=== PATIENT | male | born 1975 | race Two or more races ===

== ENCOUNTER 2020-02-28 08:54 | Inpatient (IN) | payer OTHER, SELFPAY ==
[2020-02-28] VITALS (7 sets, daily range): BP systolic 109–134; BP diastolic 57–89
[~2020-02-28] VITALS: Ht 182.9 cm; Wt 110.4 kg
[2020-02-28] MEDS ORDERED: SODIUM CHLORIDE 0.9% 1,000 ML IV ONE ×2 (09:28)
[2020-02-28] MEDS ORDERED: cefTRIAXone 1GM/50ML D5W 50 ML IV ONE (09:30)
[2020-02-28 09:37] LABS: Basophils # (auto) 0 10 ^3/uL (0-0.2); Basophils % (auto) 0.1 % (0.0-2.0); Eosinophils # (auto) 0 10 ^3/uL (0-0.8); Hematocrit 43.9 % (41.0-53.0); Lymphocytes # (auto) 0.7 10 ^3/uL (0.4-5.4); Lymphocytes % (auto) 16.3 % (10.0-50.0); Mean Corpuscular Hemoglobin 30.1 pg (28.0-32.0); Mean Corpuscular Hgb Conc. 34.1 g/dL (32.0-36.0); Mean Corpuscular Volume 88.2 fL (80.0-100.0); Monocytes # (auto) 0.2 10 ^3/uL (0-1.3); Neutrophils # (auto) 3.3 10 ^3/uL (1.6-8.6); Neutrophils % (auto) 78.6 % (37.0-80.0); Nucleated Red Blood Cells % 0.1 %; Platelet Count (auto) 171 10^3/uL (140-450); Red Blood Cells 4.97 10^6/uL (4.5-5.90); Red Cell Distribution Width 13.6 % (11.8-14.3); White Blood Cell 4.2 10^3/uL (4.4-10.8)
[2020-02-28 09:49] LABS: Albumin 3.6 g/dL (3.4-5.0); BUN/Creatinine Ratio 7.2; Calcium 8.8 mg/dL (8.5-10.1); Potassium 3.2 mmol/L (3.5-5.1)
[2020-02-28 09:57] LABS: Bilirubin, Total 0.3 mg/dL (0.2-1.0); Total Protein 8.4 g/dL (6.4-8.2)
[2020-02-28] MEDS ORDERED: ZINC SULFATE 220mg CAP or TAB PO ONE (10:15)
[2020-02-28] MEDS ORDERED: AZITHROMYCIN 500MG/ 250ML 250 ML IV ONE (10:15)
[2020-02-28] MEDS ORDERED: ASCORBIC ACID 500 MG TAB PO ONE (10:15)
[2020-02-28] MEDS ORDERED: ONDANSETRON HCL 4 MG/2 ML VIAL IV ONE (11:00)
[2020-02-28] MEDS ORDERED: MORPHINE SULF INJ 2 MG/ML SYRINGE 1ML IV PRN (11:00)
[2020-02-28] MEDS ORDERED: NITROGLYCERIN 0.4 MG SL TAB SL PRN (11:00)
[2020-02-28] MEDS ORDERED: POTASSIUM CHL 20 Meq TABLET PO ONE (11:00)
[2020-02-28 11:35] LABS: CRP High Sensitivity 7.26 mg/dL (< 0.3)
--- NOTE | 2020-02-28 11:50 | NUR ---
Telemetry admit from ER JUAN ANTONIO ALBARRAN admitted to Telemetry unit after SBAR received. Patient oriented to RAY RAMON RN primary RN, unit, room, bed, and unit policies regarding patient care and visiting hours. Patient now on continuous telemetry monitoring, tele box # 1 and telemetry reading on arrival to unit is ST. Patient placed on bedside oxygen 1L VIA N/C, NO S/S OF distress or SOB at this time. Bed in lowest and locked position with side rails x2 and call light within reach. Encouraged Pt to call if they need something. All questions and concerns addressed, patient verbalized understanding.
--- NOTE | 2020-02-28 12:30 | NUR ---
PATIENT OWN MEDICATION PLACED IN OWN MEDICATION BAG AND PLACED IN MEDICATION ROOM, PER PROTOCOL.
[2020-02-28] MEDS: ALBUTEROL SULF HFA 90MCG INH 200DOSE IN SCH ×2 (14:14→21:46)
--- NOTE | 2020-02-28 14:15 | NUR ---
Respiratory note: BREATHING TX ADMINISTERED VIA MDI WITH SPACER, PT TOLERATED WELL, NO ADVERSE REACTIONS NOTED. EDUCATED PT ON INHALER ADMINISTRATION WITH SPACER, PT VERBALIZED AND DEMONSTRATED UNDERSTANDING. HR 126, RR 18, SPO2 94% ON 1LPM NASAL CANNULA. NO S/S OF RESPIRATORY DISTRESS NOTED.
[2020-02-28] MEDS ORDERED: ACE3T PO (14:26)
[2020-02-28] MEDS ORDERED: LEVO500T21 PO (14:26)
--- NOTE | 2020-02-28 15:45 | NUR ---
PAGED DONALD ARELLANO. AWAITING CALL BACK.
--- NOTE | 2020-02-28 15:50 | NUR ---
RECEIVED CALL BACK FROM DONALD ARELLANO. SPOKE TO DONALD ARELLANO. NEW ORDERS RECEIVED READ BACK AND VERIFIED. SEE EMR FOR ORDERS.
[2020-02-28] MEDS ORDERED: ZOLPIDEM TARTRATE 5 MG TAB PO PRN (16:00)
[2020-02-28] MEDS: ACETAMINOPHEN 500 MG TAB PO PRN (18:16)
--- NOTE | 2020-02-28 19:50 | NUR ---
Opening Shift Note Assumed care of patient, awake and alert x4. Patient denies pain at this time. Patient is on 1L NC, with oxygen saturation at 94%. No signs/symptoms of distress noted or verbalized at this time. Incentive spirometer noted at bedside. Instructed and educated patient on how and how often to use the incentive spirometer, patient verbalized understanding and returned demonstration. Patient was able to raise the marker to 2500ml. Instructed on plan of care and to call for assistance as needed, patient verbalized understanding. Bed is locked in lowest position, side rails x 2 are up, and call light is within reach.
--- NOTE | 2020-02-28 20:18 | NUR ---
Hospitalist Paged RE: Nausea and Sleeping Meds Patient is complaining of nausea and is requesting nausea medication. Patient also states ambien is too strong and is requesting something different to help him sleep. Awaiting call back.
--- NOTE | 2020-02-28 20:28 | NUR ---
Hospitalist Returned Call Re: Nausea and Sleeping Meds Notified Dr. Myers that patient is complaining of nausea and is requesting a different sleeping medication. Orders for Zofran 4mg IV Q6HR PRN for nausea and Temazepam 15mg PO PRN for insomnia received. Orders read back and verified. Will carry out orders as received.
[2020-02-28] MEDS ORDERED: TEMAZEPAM 15 MG CAP PO PRN (20:30)
[2020-02-28] MEDS ORDERED: ONDANSETRON HCL 4 MG/2 ML VIAL IV PRN (20:30)
--- NOTE | 2020-02-28 21:44 | NUR ---
Temperature Temperature trended up from 99.2 to 99.4. Cooling measures initiated and in place.
[2020-02-29] VITALS (8 sets, daily range): BP systolic 97–134; BP diastolic 43–92
--- NOTE | 2020-02-29 02:20 | NUR ---
TEMP Patient called requesting to have his temperature checked due to feeling hot. Upon checking temperature it was found to be 100.0. Cooling measures initiated and in place.
[2020-02-29] MEDS: ACETAMINOPHEN 500 MG TAB PO PRN (03:18)
--- NOTE | 2020-02-29 03:20 | NUR ---
TEMP REASSESSMENT Temperature reassessment: 100.4. Cooling measures continue to be in place. Patient medicated for temperature as ordered by MD (see eMAR).
--- NOTE | 2020-02-29 04:20 | NUR ---
Temperature Reassessment Temperature reassessment: 99.3. Cooling measures continue to be in place.
[2020-02-29] MEDS: ALBUTEROL SULF HFA 90MCG INH 200DOSE IN SCH (06:20)
[2020-02-29 08:51] LABS: Basophils # (auto) 0 10 ^3/uL (0-0.2); Basophils % (auto) 0.2 % (0.0-2.0); Eosinophils # (auto) 0 10 ^3/uL (0-0.8); Hematocrit 42.4 % (41.0-53.0); Hemoglobin 14.6 g/dL (13.5-17.5); Lymphocytes # (auto) 0.9 10 ^3/uL (0.4-5.4); Lymphocytes % (auto) 18.6 % (10.0-50.0); Mean Corpuscular Hemoglobin 30.4 pg (28.0-32.0); Mean Corpuscular Hgb Conc. 34.4 g/dL (32.0-36.0); Mean Corpuscular Volume 88.3 fL (80.0-100.0); Monocytes # (auto) 0.2 10 ^3/uL (0-1.3); Monocytes % (auto) 4.3 % (0.0-12.0); Neutrophils # (auto) 3.7 10 ^3/uL (1.6-8.6); Neutrophils % (auto) 76.9 % (37.0-80.0); Platelet Count (auto) 182 10^3/uL (140-450); Red Blood Cells 4.81 10^6/uL (4.5-5.90); Red Cell Distribution Width 13.7 % (11.8-14.3); White Blood Cell 4.9 10^3/uL (4.4-10.8)
[2020-02-29 09:05] LABS: Potassium 3.5 mmol/L (3.5-5.1)
[2020-02-29 09:12] LABS: Albumin 3.2 g/dL (3.4-5.0); BUN/Creatinine Ratio 6.7; Bilirubin, Total 0.3 mg/dL (0.2-1.0); Calcium 8.4 mg/dL (8.5-10.1)
[2020-02-29] MEDS ORDERED: AZITHROMYCIN 500MG/D5WorNS 250ml IV SCH (10:00)
[2020-02-29] MEDS: ASCORBIC ACID 1,000 MG TAB PO SCH (10:26)
[2020-02-29] MEDS: ZINC SULFATE 220mg CAP or TAB PO SCH (10:26)
[2020-02-29] MEDS: CHOLECALCIFEROL (VITD3) 1,000IU=25mCg TAB PO SCH (10:27)
[2020-02-29] MEDS: ENOXAPARIN SOD 40 MG/0.4 ML SYRINGE SC SCH (10:40)
[2020-02-29] MEDS ORDERED: POTASSIUM CHL 20 Meq TABLET PO ONE (10:45)
[2020-02-29 16:42] LABS: Alcohol, Urine < 3.0 mg/dL (0-5); Amphetamine Screen, Urine NEGATIVE (NEGATIVE); Barbiturate Scree,Urine NEGATIVE (NEGATIVE); Benzodiazephine Screen, Urine NEGATIVE (NEGATIVE); Cannabinoid Screen, Urine POSITIVE (NEGATIVE); Cocaine Screen, Urine NEGATIVE (NEGATIVE); Opiate Scree,Urine NEGATIVE (NEGATIVE); Phencyclidine Screen, Urine NEGATIVE (NEGATIVE)
[2020-02-29 16:49] LABS: Urine Bacteria FEW /hpf (None Seen); Urine Blood TRACE /uL (Negative); Urine Specific Gravity 1.018 (1.001-1.035); Urine WBC 2 /hpf (0 - 3)
[2020-02-29] MEDS ORDERED: IPRATROPIUM-ALBUTEROL 20mCg/100mCg INHALER IN SCH ×2 (18:00)
--- NOTE | 2020-02-29 19:20 | NUR ---
Opening Shift Note Assumed care of patient, awake and alert x4. Patient is complaining of a throbbing headache (pain scale 8/10), informed patient that he has no ordered PRN pain medications and that this RN was going to page hospitalist and make him aware, patient verbalized understanding. Patient is on 1L NC, with oxygen saturation at 94%. No signs/symptoms of distress noted or verbalized at this time. Incentive spirometer noted at bedside. Instructed and educated patient on how and how often to use the incentive spirometer, patient verbalized understanding and returned demonstration. Patient was able to raise the marker to 2500ml. Instructed on plan of care and to call for assistance as needed, patient verbalized understanding. Bed is locked in lowest position, side rails x 2 are up, and call light is within reach.
--- NOTE | 2020-02-29 19:29 | NUR ---
Hospitalist Paged Re: Headache Hospitalist paged regarding patient c/o headache and no PRN pain medications are ordered. Awaiting call back.
--- NOTE | 2020-02-29 19:32 | NUR ---
Hospitalist Returned Call RE: Headache Notified DONALD Batista that patient is complaining of a throbbing headache(06/25) and has no PRN pain medications ordered. Orders received for Tylenol 650mg PO x1 now and Ultram 50mg PO Q6HR PRN for pain received. Orders read back and verified. Will carry out orders as received.
[2020-02-29] MEDS ORDERED: ACETAMINOPHEN 325 MG TAB PO ONE (19:45)
--- NOTE | 2020-02-29 19:49 | NUR ---
Headache Patient is c/o a throbbing headache (pain scale 8/10). Patient states his headache started after waking up from his nap. Patient also reports he gets occasional headaches and migraines at home. Patient has been medicated for headache as ordered by MD (see eMAR).
--- NOTE | 2020-02-29 20:49 | NUR ---
Reassessment: Headache Patient reports his headache is subsiding. Patient rates his headache as a 3/10.
--- NOTE | 2020-02-29 21:30 | NUR ---
Temperature Patient's temperature is 99.6. Patient reports feeling hot. Cooling measures initiated and in place.
[2020-02-29] MEDS: IPRATROPIUM-ALBUTEROL 20mCg/100mCg INHALER IN SCH (22:30)
--- NOTE | 2020-02-29 22:30 | NUR ---
Respiratory note: COMBIVENT GIVEN VIA MDI
--- NOTE | 2020-02-29 22:50 | NUR ---
Reassessment: Temperature Patient's temperature at this time is 98.2.
--- NOTE | 2020-02-29 23:39 | NUR ---
Oxygen Titrated Up Patient's oxygen saturation on cardiac tech was sustaining between 88-90%. Upon entering room, patient's oxygen saturation was 89% on 1L NC. Patient was noted sleeping in bed with even and unlabored respirations. No signs/symptoms of distress was noted. This RN titrated oxygen up to 2L via NC. Patient's oxygen saturation came up to 92%. Patient is currently laying in bed with even and unlabored respirations. No signs/symptoms of distress noted at this time. Current oxygen saturation is 94% via 2L NC.
[2020-03-01] VITALS (7 sets, daily range): BP systolic 110–129; BP diastolic 69–88
[2020-03-01] MEDS: IPRATROPIUM-ALBUTEROL 20mCg/100mCg INHALER IN SCH ×3 (05:46→22:16)
--- NOTE | 2020-03-01 05:46 | NUR ---
Respiratory note: COMBIVENT GIVEN VIA MDI BY MILAGROS Escalante
--- NOTE | 2020-03-01 06:52 | NUR ---
Respiratory note: ASSESSED PT IN PROPER PPE, PT SHOWED NO S/S OF RESPIRATORY DISTRESS. PT VITALS ARE SPO2 94% ON 1 L NASAL CANNULA, RR 18, HR 107. WILL CONTINUE TO MONITOR PT.
--- NOTE | 2020-03-01 06:57 | NUR ---
Closing Shift Note Endorsed patient care to Yunior LINARES.
[2020-03-01] MEDS: ASCORBIC ACID 1,000 MG TAB PO SCH (09:20)
[2020-03-01] MEDS: ZINC SULFATE 220mg CAP or TAB PO SCH (09:20)
[2020-03-01] MEDS: CHOLECALCIFEROL (VITD3) 1,000IU=25mCg TAB PO SCH (09:21)
[2020-03-01] MEDS: AZITHROMYCIN 250 MG TAB PO SCH (09:21)
[2020-03-01] MEDS: ENOXAPARIN SOD 40 MG/0.4 ML SYRINGE SC SCH (09:22)
[2020-03-01] MEDS: traMADol HCL 50 MG TAB PO PRN ×2 (11:56→20:04)
--- NOTE | 2020-03-01 12:54 | NUR ---
Nutrition Assessment Notes Please refer to link for full assessment notes. Est energy needs: 4948-4770 kcals (17-20 kcal/kgBW) Est protein needs: 69-86 gms/day (0.8-1.0 gm/kgAdjBW) Will continue to monitor and reassess prn. Addendum: 03/01/20 at [address] Amended: Links added.
--- NOTE | 2020-03-01 19:30 | NUR ---
Hospitalist paged: Patient requesting Tylenol for pain. No Tylenol for pain order. Paged hospitalist regarding patients headache pain. Waiting for call back.
--- NOTE | 2020-03-01 20:00 | NUR ---
Opening Shift Note Assumed care of patient with provided PPE, awake and alert oriented x4. No S/S of distress/SOB noted. Patient reports pain and is requesting Tylenol. Will notify Hospitalist. Instructed on POC and to call for assist PRN, bed is in lowest locked position with bed rails up x2 and call light is within reach of the patient.
--- NOTE | 2020-03-01 20:50 | NUR ---
Hospitalist called back: Notified hospitalist Jeremy of patients headache and requesting Tylenol. New orders received. To place orders.
[2020-03-01] MEDS: ACETAMINOPHEN 325 MG TAB PO PRN (21:29)
--- NOTE | 2020-03-01 21:56 | NUR ---
MDI ADMINISTERED ORDERED VIA SPACER. SPO2 96% ON 2L NC, HR 100. NO RESPIRATORY DISTRESS NOTED. WILL CONTINUE WITH NEXT SCHEDULED TX.
[2020-03-02] VITALS: BP 101/74
[2020-03-02 05:00] VITALS: BP 114/75
[2020-03-02] MEDS: ACETAMINOPHEN 500 MG TAB PO PRN ×2 (05:50→15:08)
--- NOTE | 2020-03-02 05:50 | NUR ---
Elevated temp, mild pain: Patient had a temperature of 100.6 and a mild headache. PRN Tylenol given to help bring down temperature and cooling measures implemented. Cooled room down and applied ice packs to bilateral arm pits. Patient tolerated well. To recheck temperature.
[2020-03-02] MEDS: IPRATROPIUM-ALBUTEROL 20mCg/100mCg INHALER IN SCH ×3 (06:45→21:38)
--- NOTE | 2020-03-02 06:45 | NUR ---
BREATHING TX ADMINISTERED VIA MDI WITH SPACER, PT TOLERATED WELL, NO ADVERSE REACTIONS NOTED. EDUCATED PT ON INHALER ADMINISTRATION WITH SPACER, PT VERBALIZED AND DEMONSTRATED UNDERSTANDING. HR 82, RR 18, SPO2 93% ON 2LPM NASAL CANNULA. NO S/S OF RESPIRATORY DISTRESS NOTED. WILL CONTINUE TO MONITOR PT.
--- NOTE | 2020-03-02 06:50 | NUR ---
Temperature reassessed: Temperature reassessed as 99.5 after cooling measures implemented and Tylenol was given. Patient resting in bed with breaths even and unlabored. No s/s of distress SOB noted at this time.
--- NOTE | 2020-03-02 07:30 | NUR ---
Opening Shift Note Assumed care of patient, awake and alert. No S/S of distress/SOB or pain. Bed in lowest and locked position with side rails up x2 and call light in reach. Instructed on POC and to call for assist PRN, will continue to monitor for changes Q1hr and PRN.
[2020-03-02 08:00] VITALS: BP 112/81
[2020-03-02] MEDS: ZINC SULFATE 220mg CAP or TAB PO SCH (10:36)
[2020-03-02] MEDS: ENOXAPARIN SOD 40 MG/0.4 ML SYRINGE SC SCH (10:37)
[2020-03-02] MEDS: ASCORBIC ACID 1,000 MG TAB PO SCH (10:37)
[2020-03-02] MEDS: CHOLECALCIFEROL (VITD3) 1,000IU=25mCg TAB PO SCH (10:37)
[2020-03-02] MEDS: AZITHROMYCIN 250 MG TAB PO SCH (10:37)
[2020-03-02 12:00] VITALS: BP 126/84
--- NOTE | 2020-03-02 13:37 | NUR ---
assessment Patient is a 44 year old male who is alert and oriented. Patients cognitive abilities are intact. Prior to admission patient lived home with his and family and functioned independently. Patient informed me he is able to care for his own ADLs. Per patient he will return home to his prior living arrangements post discharge and family will transport him home. Patients PCP is Dr Martinez. Patient is covid 19 positive. Patient may need home 02 on discharge. I informed patient he has a right to speak to a social services director regarding all care. I informed patient he has a right to participate in any and all discharge planning. Patient does not have a POA and advanced directive. I have offered patient information on POA and advanced directives. I informed the patient the advantages and benefits of having an Advanced Directive. Patient verbalized understanding and agreed to discharge plan. Addendum: 03/02/20 at 1354 by Roselia MENARD Amended: Links added.
--- NOTE | 2020-03-02 14:27 | NUR ---
BREATHING TX ADMINISTERED VIA MDI WITH SPACER, PT TOLERATED WELL, NO ADVERSE REACTIONS NOTED. EDUCATED PT ON INHALER ADMINISTRATION WITH SPACER, PT VERBALIZED AND DEMONSTRATED UNDERSTANDING. HR 96, RR 18, SPO2 95% ON 2LPM NASAL CANNULA. NO S/S OF RESPIRATORY DISTRESS NOTED. WILL CONTINUE TO MONITOR PT.
[2020-03-02 16:00] VITALS: BP 116/70
--- NOTE | 2020-03-02 16:35 | NUR ---
PATIENT REFUSING IV. RN EDUCATED THE PATIENT ON THE RISKS, BENEFITS AND IMPORTANCE ON INSERTION OF A NEW IV. PATIENT VERBALIZED UNDERSTANDING AND STATED, "IF I NEED A NEW IV LATER YOU CAN PUT ONE IN BUT I MIGHT GO HOME TOMORROW, SO UNTIL THEN LETS LEAVE IT ALONE".
--- NOTE | 2020-03-02 16:35 | NUR ---
IV removal IV DC'd with clean sterile technique, catheter fully intact. Pressure dressing applied to site. Patient tolerated well.
[2020-03-02 20:00] VITALS: BP 121/79
--- NOTE | 2020-03-02 20:00 | NUR ---
Opening Shift Note Assumed care of patient with provided PPE. Patient is awake and alert oriented x4. No S/S of distress/SOB noted. Instructed on POC and to call for assist PRN, bed is in lowest locked position with bed rails up x2 and call light is within reach of the patient. Patient currently on 2 liters nasal cannula.
--- NOTE | 2020-03-02 20:05 | NUR ---
Patient refused new IV: This RN educated patient about the benefits, risks and importance of having an IV at all times while in the hospital for med administration. Patient currently refusing despite education stating, "If I need to get poked later I will. But I don't need it right now."
[2020-03-03] VITALS (7 sets, daily range): BP systolic 120–132; BP diastolic 76–82
[2020-03-03] MEDS: ACETAMINOPHEN 325 MG TAB PO PRN ×2 (00:03→09:22)
[2020-03-03] MEDS: IPRATROPIUM-ALBUTEROL 20mCg/100mCg INHALER IN SCH ×4 (06:00→22:00)
--- NOTE | 2020-03-03 06:00 | NUR ---
Respiratory note: MDI GIVEN BY RN. PT ON 1.0 LPM NC 02. HR 92, RR 18 AND SP02 93%.
--- NOTE | 2020-03-03 08:00 | NUR ---
PATIENT REFUSING IV. RN EDUCATED THE PATIENT ON THE RISKS, BENEFITS AND IMPORTANCE ON INSERTION OF A NEW IV. PATIENT VERBALIZED UNDERSTANDING AND CONTINUES TO REFUSE.
[2020-03-03] MEDS: ENOXAPARIN SOD 40 MG/0.4 ML SYRINGE SC SCH (09:05)
[2020-03-03] MEDS: AZITHROMYCIN 250 MG TAB PO SCH (09:05)
[2020-03-03] MEDS: ZINC SULFATE 220mg CAP or TAB PO SCH (09:06)
[2020-03-03] MEDS: ASCORBIC ACID 1,000 MG TAB PO SCH (09:06)
[2020-03-03] MEDS: CHOLECALCIFEROL (VITD3) 1,000IU=25mCg TAB PO SCH (09:06)
--- NOTE | 2020-03-03 09:22 | NUR ---
PATIENT STATED HE HAS PAIN. PATIENT RATED HIS PAIN AT A 3/10, DESCRIBED A "HEAD ACHE". RN OFFERED COMFORT MEASURES BUT PATIENT REFUSED AND STATED, "I JUST WANT TYLENOL".
--- NOTE | 2020-03-03 11:00 | NUR ---
SPOKE TO DR. CALIX. NEW ORDERS RECEIVED, READ BACK AND VERIFIED. SEE EMR FOR ORDERS.
--- NOTE | 2020-03-03 12:00 | NUR ---
SPOKE TO DR. CALIX. RN UPDATED DR. CALIX ON THE PATIENTS O2 SATURATION OF 90-92% ON RA. RN ALSO NOTIFIED MD THAT THE PATIENT'S TELEMETRY HAS SHOWN UNIFOCAL PVC'S. MD AWARE AND NO NEW ORDERS RECEIVED AT THIS TIME. PER MD HE WILL ENTER NEW ORDERS.
[2020-03-03 12:55] LABS: BUN/Creatinine Ratio 14.1; Calcium 8.6 mg/dL (8.5-10.1); Magnesium 2.7 mg/dL (1.6-2.6); Potassium 3.7 mmol/L (3.5-5.1)
[2020-03-03] MEDS ORDERED: BUMETANIDE 1 MG TAB PO ONE (13:15)
[2020-03-03] MEDS ORDERED: POTASSIUM CHL 20 Meq TABLET PO ONE (13:15)
--- NOTE | 2020-03-03 19:30 | NUR ---
Opening Shift Note Assumed care of patient, awake and alert. No S/S of distress/SOB or pain. Bed in lowest and locked position with side rails up x2 and call light in reach. Instructed on POC and to call for assist PRN, will continue to monitor for changes Q1hr and PRN. Per day shift RN. Pt will be discharged tomorrow 03/04.
[2020-03-04] MEDS: IPRATROPIUM-ALBUTEROL 20mCg/100mCg INHALER IN SCH ×2 (05:46→22:14)
--- NOTE | 2020-03-04 05:49 | NUR ---
pain pt complaining of headache 01/23. Tylenol given.
[2020-03-04] MEDS: ACETAMINOPHEN 325 MG TAB PO PRN (05:50)
[2020-03-04 05:57] VITALS: BP 121/73
[2020-03-04 08:00] VITALS: BP 136/90
[2020-03-04] MEDS: ZINC SULFATE 220mg CAP or TAB PO SCH (09:13)
[2020-03-04] MEDS: BUMETANIDE 1 MG TAB PO SCH (09:13)
[2020-03-04] MEDS: AZITHROMYCIN 250 MG TAB PO SCH (09:14)
[2020-03-04] MEDS: POTASSIUM CHL 20 Meq TABLET PO SCH (09:14)
[2020-03-04] MEDS: ASCORBIC ACID 1,000 MG TAB PO SCH (09:14)
[2020-03-04] MEDS: CHOLECALCIFEROL (VITD3) 1,000IU=25mCg TAB PO SCH (09:14)
[2020-03-04] MEDS: ENOXAPARIN SOD 40 MG/0.4 ML SYRINGE SC SCH (09:24)
--- NOTE | 2020-03-04 09:40 | NUR ---
SPOKE TO DR. ABRAHAM REGARDING DISCHARGE. PER MD, THE PATIENT DISCHARGE IS TO BE HELD AT THIS TIME.
[2020-03-04 12:00] VITALS: BP 125/79
[2020-03-04 16:00] VITALS: BP 129/79
--- NOTE | 2020-03-04 16:18 | NUR ---
PATIENT BELONGINGS DROPPED OFF BY FAMILY AT [employer]. PATIENT BELONGINGS GIVEN TO PATIENT.
--- NOTE | 2020-03-04 19:40 | NUR ---
Opening Shift Note Assumed care of patient from Lily RN, eyes closed, respirations even and unlabored, appears asleep. Bed in lowest locked position, side rails up x 2, call light within reach, COVID [address]. Instructed on POC and to call for assist PRN, will continue to monitor for changes Q1hr and PRN.
[2020-03-04 20:00] VITALS: BP 129/86
--- NOTE | 2020-03-04 21:50 | NUR ---
Temperatute 99.2, blankets removed and temperature of room lowered. Patient denies chills or any other s/s of fever. Patient also refusing IV at this time. Patient educated on importance of having IV while in hospital, patient continuing to refuse. No s/s of distress, will continue to monitor.
[2020-03-05] VITALS: BP 110/79
[2020-03-05 04:00] VITALS: BP 110/68
[2020-03-05] MEDS: IPRATROPIUM-ALBUTEROL 20mCg/100mCg INHALER IN SCH ×3 (06:29→22:12)
--- NOTE | 2020-03-05 06:42 | NUR ---
Respiratory note: HR 100, RR 14, SPO2 94% ON RA, BS CLEAR/DIMINISHED. MDI GIVEN BY RN. PT TOLERATED WELL. NO SIGNS OR SYMPTOMS OF RESPIRATORY DISTRESS NOTED AT THIS TIME.
--- NOTE | 2020-03-05 06:50 | NUR ---
Closing Note Patient lying in bed, awake and alert. No s/s of distress. Temperature 98.4. Will endorse care to dayshift RN.
[2020-03-05 07:07] LABS: BUN/Creatinine Ratio 15.1; Calcium 8.5 mg/dL (8.5-10.1); Potassium 3.9 mmol/L (3.5-5.1)
--- NOTE | 2020-03-05 07:20 | NUR ---
Opening Shift Note Assumed care of patient, awake and alert. No S/S of distress/SOB or pain. Instructed on POC and to call for assist PRN, will continue to monitor for changes Q1hr and PRN.
[2020-03-05 08:00] VITALS: BP 119/83
[2020-03-05] MEDS: ENOXAPARIN SOD 40 MG/0.4 ML SYRINGE SC SCH (10:00)
[2020-03-05] MEDS: BUMETANIDE 1 MG TAB PO SCH (10:16)
[2020-03-05] MEDS: ZINC SULFATE 220mg CAP or TAB PO SCH (10:16)
[2020-03-05] MEDS: CHOLECALCIFEROL (VITD3) 1,000IU=25mCg TAB PO SCH (10:17)
[2020-03-05] MEDS: AZITHROMYCIN 250 MG TAB PO SCH (10:17)
[2020-03-05] MEDS: ASCORBIC ACID 1,000 MG TAB PO SCH (10:17)
[2020-03-05] MEDS: POTASSIUM CHL 20 Meq TABLET PO SCH (10:17)
--- NOTE | 2020-03-05 11:35 | NUR ---
Patient ambulated in hallway per md, sat as low at 86 on ra, HR 136. pts denies sob, but states he is very fatigued, will let Md know results.
--- NOTE | 2020-03-05 14:40 | NUR ---
Respiratory note: HR 97, RR 14, SPO2 93% ON RA, BS CLEAR/DIMINISHED. MDI GIVEN BY RN. PT TOLERATED WELL. NO SIGNS OR SYMPTOMS OF RESPIRATORY DISTRESS NOTED AT THIS TIME
[2020-03-05] MEDS ORDERED: BUMETANIDE 1 MG TAB PO ONE (15:00)
[2020-03-05] MEDS ORDERED: POTASSIUM CHL 20 Meq TABLET PO ONE (15:00)
[2020-03-05 18:00] VITALS: BP 102/64
--- NOTE | 2020-03-05 19:10 | NUR ---
Opening Shift Note Assumed care of patient, awake, alert and oriented x4, even and unlabored respirations on room air, no S/S of distress/SOB or pain. Patient able to ambulate and turn in bed independently, bed in lowest locked position, side rails up x2, call light within reach. Instructed on POC and to call for assist PRN, will continue to monitor for changes Q1hr and PRN.
[2020-03-05 22:00] VITALS: BP 130/83
--- NOTE | 2020-03-06 01:23 | NUR ---
RT NOTE PT MDI TX GIVEN BY MILAGROS LINDQUIST. RT MADE SURE THAT MILAGROS LINDQUIST WAS EDUCATED IN THE PROPER WAY OF GIVING TX.
--- NOTE | 2020-03-06 06:00 | NUR ---
PATIENT REFUSED LABS PATIENT REFUSED TO HAVE MORNING LABS DRAWN. PATIENT WAS EDUCATED ON IMPORTANCE AND NEED FOR LAB DRAW, PATIENT VERBALIZED UNDERSTANDING AND CONTINUED TO REFUSE.
[2020-03-06] MEDS: IPRATROPIUM-ALBUTEROL 20mCg/100mCg INHALER IN SCH ×2 (06:54→14:32)
--- NOTE | 2020-03-06 06:54 | NUR ---
Respiratory note: 1 PUFF ALBUTEROL GIVEN VIA MDI BY RN. NO ADVERSE EFFECTS NOTED. HR 91, RR 20, SPO2 96% ON RA, BS CLEAR/DIMINISHED.
--- NOTE | 2020-03-06 07:25 | NUR ---
Opening Shift Note Assumed care of patient, awake and alert. No S/S of distress/SOB or pain. Instructed on POC and to call for assist PRN, will continue to monitor for changes Q1hr and PRN. Fall precautions in place per safety protocol. Lab called asking about patients morning lab drawn. Patient continues to refuse, patient educated on risks of not getting labs drawn, patient verbalize understanding and continues to refuse.
[2020-03-06 08:00] VITALS: BP 127/93
--- NOTE | 2020-03-06 08:24 | NUR ---
Patient ambulated unit X2, tolerated well. O2 Sats maintained between 99%-100% while walking and HR maintained in the 120's. Will cont to monitor patient.
[2020-03-06] MEDS: ZINC SULFATE 220mg CAP or TAB PO SCH (09:24)
[2020-03-06] MEDS: BUMETANIDE 1 MG TAB PO SCH (09:24)
[2020-03-06] MEDS: CHOLECALCIFEROL (VITD3) 1,000IU=25mCg TAB PO SCH (09:25)
[2020-03-06] MEDS: POTASSIUM CHL 20 Meq TABLET PO SCH (09:25)
[2020-03-06] MEDS: ENOXAPARIN SOD 40 MG/0.4 ML SYRINGE SC SCH ×2 (09:25→10:00)
[2020-03-06] MEDS: ASCORBIC ACID 1,000 MG TAB PO SCH (09:25)
[2020-03-06 10:19] VITALS: BP 127/93
--- NOTE | 2020-03-06 11:20 | NUR ---
Hospitalist at bedside MD Choe at bedside, aware of patient status. Awaiting discharge orders. Will cont to monitor patient.
[2020-03-06] MEDS ORDERED: POTASSIUM CHL 20 Meq TABLET PO ONE (11:30)
--- NOTE | 2020-03-06 13:15 | NUR ---
Discharge instructions given as ordered. Encourage to follow up with PMD as instructed. All questions and concerns addressed. Patient verbalized understanding. Medication reconciliation form completed and copy given to patient. Home medications held in Pharmacy returned to patient. Telemetry unit returned to ICU. Patient taken to vehicle via wheelchair with all personal belongings, accompanied by staff. No distress noted at time of departure.
--- NOTE | 2020-03-06 13:30 | NUR ---
Respiratory note: HR 92, RR 14, SPO2 95% ON RA, RR 20, BS CLEAR/DIMINISHED. 1 PUFF ALBUTEROL GIVEN VIA MDI BY RN. NO ADVERSE EFFECTS NOTED.
== END 2020-03-06 13:15 | disposition home or self-care (01) | DRG 720 ==
LOC: ER 08:54 → TELE 08:55 → TELE-EAST 12:02
PROVIDERS: ADMIT Nurse Practitioner Acute Care; ATTEND Internal Medicine
DX: A41.89 Other specified sepsis (principal); U07.1 COVID-19; J96.00 Acute respiratory failure, unspecified whether with hypoxia or hypercapnia; R65.20 Severe sepsis without septic shock; J12.89 Other viral pneumonia; D72.819 Decreased white blood cell count, unspecified; E66.9 Obesity, unspecified; E87.6 Hypokalemia; R19.7 Diarrhea, unspecified; J45.901 Unspecified asthma with (acute) exacerbation; Z79.899 Other long term (current) drug therapy; Z68.33 Body mass index [BMI] 33.0-33.9, adult
CPT/HCPCS: 36415; 71045; 80048; 80053; 80307; 81001; 82728; 83036; 83605; 83615; 83735; 84443; 85025; 85379; 86141; 87040; 87070; 87804; 87880; 94640; 96365; 96366; 96368; 96375; G0378; J0696; J2405

== ENCOUNTER 2020-11-27 23:11 | Emergency (ER) | payer OTHER, SELFPAY ==
[~2020-11-27] VITALS: Ht 182.9 cm; Wt 111.6 kg
[~2020-11-27 23:11] MED LIST: ACE3T PO; LEVO500T21 PO
[2020-11-27] MEDS ORDERED: LIDOCAINE VISCOUS 2% 15ML UD PO ONE (23:45)
[2020-11-27] MEDS ORDERED: DONNATAL 5ml ORAL Elix (BELLADONNA ALK-PHENOBARB) PO ONE (23:45)
[2020-11-27] MEDS ORDERED: ALUM & MAG HYDROX-SIMETH LIQ(MAALOX) 30 ML PO ONE (23:45)
[2020-11-28 01:31] LABS: Basophils # (auto) 0 10 ^3/uL (0-0.2); Basophils % (auto) 0.7 % (0.0-2.0); Eosinophils # (auto) 0.2 10 ^3/uL (0-0.8); Eosinophils % (auto) 2.5 % (0.0-7.0); Lymphocytes % (auto) 31.2 % (10.0-50.0); Mean Corpuscular Hemoglobin 30.9 pg (28.0-32.0); Mean Corpuscular Hgb Conc. 34.8 g/dL (32.0-36.0); Mean Corpuscular Volume 88.6 fL (80.0-100.0); Monocytes # (auto) 0.6 10 ^3/uL (0-1.3); Monocytes % (auto) 9.9 % (0.0-12.0); Neutrophils # (auto) 3.6 10 ^3/uL (1.6-8.6); Neutrophils % (auto) 55.7 % (37.0-80.0); Nucleated Red Blood Cells % 0.2 %; Platelet Count (auto) 245 10^3/uL (140-450); Red Blood Cells 4.85 10^6/uL (4.5-5.90); Red Cell Distribution Width 12.8 % (11.8-14.3); White Blood Cell 6.5 10^3/uL (4.4-10.8)
[2020-11-28 01:49] LABS: Chloride 108 mmol/L (98-107); Potassium 3.8 mmol/L (3.5-5.1); Sodium 138 mmol/L (136-145)
[2020-11-28 01:59] LABS: Alanine Aminotransferase 34 U/L (16-61); Albumin 3.9 g/dL (3.4-5.0); Alkaline Phosphatase 81 U/L (45-117); Anion Gap 2 (5-15); Aspartate Aminotransferase 16 U/L (15-37); BUN/Creatinine Ratio 13.2; Bilirubin, Total 0.3 mg/dL (0.2-1.0); Blood Urea Nitrogen 15 mg/dL (7-18); Calcium 8.9 mg/dL (8.5-10.1); Carbon Dioxide 28 mmol/L (21-32); GFR African American 90 mL/min; GFR Non-African American 74 mL/min; Glucose 105 mg/dL (74-106); Magnesium 2.6 mg/dL (1.6-2.6); Total Protein 7.7 g/dL (6.4-8.2)
[2020-11-28 02:53] VITALS: BP 130/85
== END 2020-11-28 02:57 | disposition home or self-care (01) ==
LOC: ER 23:20
DX: K21.9 Gastro-esophageal reflux disease without esophagitis (principal)
CPT/HCPCS: 36415; 71045; 80053; 83735; 83880; 84484; 85025; 93005

== ENCOUNTER 2021-01-03 17:08 | Inpatient (IN) | payer OTHER ==
[~2021-01-03] VITALS: Ht 180.3 cm; Wt 115.0 kg
[~2021-01-03 17:08] MED LIST changes: -LEVO500T21 PO; +LEVO500T31 PO
[2021-01-03 18:06] LABS: Basophils # (auto) 0.1 10 ^3/uL (0-0.2); Basophils % (auto) 0.5 % (0.0-2.0); Eosinophils # (auto) 0.2 10 ^3/uL (0-0.8); Eosinophils % (auto) 1.3 % (0.0-7.0); Hematocrit 44.7 % (41.0-53.0); Hemoglobin 15.3 g/dL (13.5-17.5); Lymphocytes # (auto) 1.9 10 ^3/uL (0.4-5.4); Lymphocytes % (auto) 15.8 % (10.0-50.0); Mean Corpuscular Hemoglobin 30.5 pg (28.0-32.0); Mean Corpuscular Hgb Conc. 34.1 g/dL (32.0-36.0); Mean Corpuscular Volume 89.4 fL (80.0-100.0); Monocytes # (auto) 0.9 10 ^3/uL (0-1.3); Monocytes % (auto) 7.2 % (0.0-12.0); Neutrophils # (auto) 9.2 10 ^3/uL (1.6-8.6); Neutrophils % (auto) 75.2 % (37.0-80.0); Nucleated Red Blood Cells % 0.1 %; Platelet Count (auto) 238 10^3/uL (140-450); Red Cell Distribution Width 13.5 % (11.8-14.3); White Blood Cell 12.2 10^3/uL (4.4-10.8)
[2021-01-03] MEDS ORDERED: SODIUM CHLORIDE 0.9% 500 ML IVB ONE (18:15)
[2021-01-03] MEDS ORDERED: HYDROmorphone HCL 2 MG/ML VL IV ONE (18:15)
[2021-01-03] MEDS ORDERED: metroNIDAZOLE 500MG/100ML 100 ML IV ONE (18:15)
[2021-01-03] MEDS ORDERED: ONDANSETRON HCL 4 MG/2 ML VIAL IV ONE (18:15)
[2021-01-03 18:25] LABS: Albumin 4.1 g/dL (3.4-5.0); Calcium 8.5 mg/dL (8.5-10.1); Potassium 4.1 mmol/L (3.5-5.1)
[2021-01-03 18:28] LABS: Bilirubin, Total 0.4 mg/dL (0.2-1.0); Total Protein 8.1 g/dL (6.4-8.2)
[2021-01-03] MEDS ORDERED: PROMETHAZINE HCL 25 MG/ML 1ML IV PRN (19:15)
[2021-01-03] MEDS ORDERED: MORPHINE SULF INJ 2 MG/ML SYRINGE 1ML IV PRN ×2 (19:15)
[2021-01-03] MEDS ORDERED: TEMAZEPAM 15 MG CAP PO PRN (19:15)
[2021-01-03] MEDS ORDERED: NITROGLYCERIN 0.4 MG SL TAB SL PRN (19:15)
[2021-01-03] MEDS ORDERED: cefTRIAXone 1GM/50ML D5W 50 ML IV ONE (20:00)
[2021-01-03] MEDS: ACETAMINOPHEN 500 MG TAB PO PRN (21:07)
[2021-01-03] MEDS: SODIUM CHLORIDE 0.9% 1,000 ML IV SCH (21:45)
[2021-01-03] MEDS: FAMOTIDINE (10MG/ML) 2ML VL IV SCH (21:45)
[2021-01-03] MEDS: metroNIDAZOLE 500MG/100ML 100 ML IV SCH (22:00)
[2021-01-03] MEDS: traMADol HCL 50 MG TAB PO PRN (23:32)
[2021-01-04 04:15] LABS: Urine Bacteria NONE SEEN /hpf (None Seen); Urine Blood Negative /uL (Negative); Urine Mucus FEW (None Seen); Urine Specific Gravity 1.011 (1.001-1.035); Urine WBC 1 /hpf (0 - 3)
[2021-01-04] MEDS: SODIUM CHLORIDE 0.9% 1,000 ML IV SCH ×2 (05:15→15:15)
[2021-01-04] MEDS: metroNIDAZOLE 500MG/100ML 100 ML IV SCH ×3 (05:57→21:34)
[2021-01-04] MEDS: ACETAMINOPHEN 500 MG TAB PO PRN ×3 (06:03→15:45)
[2021-01-04] MEDS: traMADol HCL 50 MG TAB PO PRN ×2 (06:03→21:56)
[2021-01-04] MEDS: ENOXAPARIN SOD 40 MG/0.4 ML SYRINGE SC SCH ×2 (10:00→10:45)
[2021-01-04] MEDS: FAMOTIDINE (10MG/ML) 2ML VL IV SCH ×2 (10:45→21:34)
[2021-01-04] MEDS ORDERED: SERT-375 PO (10:55)
[2021-01-04] MEDS ORDERED: FLUT250M2 INH (10:56)
[2021-01-04 13:00] VITALS: BP 124/89
[2021-01-04 17:17] VITALS: BP 109/81
[2021-01-04] MEDS ORDERED: cefTRIAXone 1GM/50ML D5W 50 ML IV SCH (21:00)
[2021-01-04 22:00] VITALS: BP 136/82
[2021-01-05] MEDS: SODIUM CHLORIDE 0.9% 1,000 ML IV SCH ×2 (01:15→11:26)
[2021-01-05 05:00] VITALS: BP 116/77
[2021-01-05] MEDS: traMADol HCL 50 MG TAB PO PRN (05:47)
[2021-01-05] MEDS: metroNIDAZOLE 500MG/100ML 100 ML IV SCH ×2 (05:53→13:22)
[2021-01-05 06:45] LABS: Basophils # (auto) 0 10 ^3/uL (0-0.2); Basophils % (auto) 0.6 % (0.0-2.0); Eosinophils # (auto) 0.2 10 ^3/uL (0-0.8); Eosinophils % (auto) 3.1 % (0.0-7.0); Hematocrit 41.6 % (41.0-53.0); Hemoglobin 14.8 g/dL (13.5-17.5); Lymphocytes # (auto) 2.3 10 ^3/uL (0.4-5.4); Lymphocytes % (auto) 32.5 % (10.0-50.0); Mean Corpuscular Hemoglobin 31.6 pg (28.0-32.0); Mean Corpuscular Hgb Conc. 35.5 g/dL (32.0-36.0); Mean Corpuscular Volume 89.1 fL (80.0-100.0); Monocytes # (auto) 0.5 10 ^3/uL (0-1.3); Monocytes % (auto) 7.3 % (0.0-12.0); Neutrophils # (auto) 3.9 10 ^3/uL (1.6-8.6); Neutrophils % (auto) 56.5 % (37.0-80.0); Platelet Count (auto) 220 10^3/uL (140-450); Red Blood Cells 4.68 10^6/uL (4.5-5.90); Red Cell Distribution Width 13.5 % (11.8-14.3)
[2021-01-05 06:57] LABS: Potassium 3.9 mmol/L (3.5-5.1)
[2021-01-05 07:02] LABS: BUN/Creatinine Ratio 5.8; Calcium 8.9 mg/dL (8.5-10.1)
[2021-01-05 08:00] VITALS: BP 130/79
[2021-01-05 08:50] VITALS: BP 130/79
[2021-01-05] MEDS: ENOXAPARIN SOD 40 MG/0.4 ML SYRINGE SC SCH ×2 (10:00→10:09)
[2021-01-05] MEDS: FAMOTIDINE (10MG/ML) 2ML VL IV SCH (10:10)
[2021-01-05 13:00] VITALS: BP 133/84
[2021-01-05 16:28] VITALS: BP 133/84
[2021-01-05 17:00] VITALS: BP 131/81
== END 2021-01-05 18:52 | disposition home or self-care (01) | DRG 244 ==
LOC: ER 17:08 → TELE 17:09 → TELE-WESTW 01-04 10:23 → TELE-EAST 01-04 16:50
PROVIDERS: ADMIT Internal Medicine; ATTEND Internal Medicine Pulmonary Disease
DX: K57.32 Diverticulitis of large intestine without perforation or abscess without bleeding (principal); E66.01 Morbid (severe) obesity due to excess calories; J45.909 Unspecified asthma, uncomplicated; Z20.822 Contact with and (suspected) exposure to COVID-19; D72.829 Elevated white blood cell count, unspecified; F32.9 Major depressive disorder, single episode, unspecified; M17.10 Unilateral primary osteoarthritis, unspecified knee; Z68.35 Body mass index [BMI] 35.0-35.9, adult; Z80.0 Family history of malignant neoplasm of digestive organs; Z82.49 Family history of ischemic heart disease and other diseases of the circulatory system; Z85.038 Personal history of other malignant neoplasm of large intestine
CPT/HCPCS: 36415; 74176; 80048; 80053; 81001; 83690; 85025; 87426; G0378; J0696; J2405; J3490